=== PATIENT | male | born 1980 | race American Indian/Alaskan Native ===

== ENCOUNTER 2021-07-07 21:25 | Emergency (ER) | payer MEDICARE ==
--- NOTE | 2021-07-07 23:18 | Emergency Department Report ---
ED Psych HPI - General Chief Complaint: Psych Stated Complaint: MH Time Seen by Provider: 07/07/21 22:06 Source: patient Mode of arrival: Ambulatory - History of Present Illness Initial Comments: Patient is a 40-year-old F [place] male who is presenting with suicidal ideations. Patient states he is having severe depression and grief after the of her friend. Patient having thoughts of killing himself. Tonight he drank alcohol and took several sleeping pills. States he did not take enough to overdose however his plan to kill himself with his to overdose on pills. Patient states he only took 2 of the sleeping pills no auditory visual hallucinations no homicidal ideations. - Related Data Allergies Allergy/AdvReac Type Severity Reaction Status Date / Time lidocaine Allergy Unknown Verified 07/07/21 21:48 Penicillins Allergy Unknown Verified 07/07/21 21:48 ED Review of Systems ROS: Stated complaint: MH Other details as noted in HPI Comment: All other systems reviewed and negative ED Past Medical Hx - Past Medical History Previous Medical History?: Yes Hx Psychiatric Treatment: (schizophrenia) ED Physical Exam - General Limitations: No Limitations General appearance: alert, in no apparent distress - Head Head exam: Present: atraumatic, normocephalic - Eye Eye exam: Present: normal appearance - ENT ENT exam: Present: mucous membranes moist - Neck Neck exam: Present: normal inspection - Respiratory Respiratory exam: Present: normal lung sounds bilaterally. Absent: respiratory distress, wheezes, rales, rhonchi - Cardiovascular Cardiovascular Exam: Present: regular rate, normal rhythm, normal heart sounds. Absent: systolic murmur, diastolic murmur, rubs, gallop - GI/Abdominal GI/Abdominal exam: Present: soft, normal bowel sounds. Absent: distended, tenderness, guarding, rebound - Rectal Rectal exam: Present: deferred - Extremities Exam Extremities exam: Present: normal inspection - Back Exam Back exam: Present: normal inspection - Neurological Exam Neurological exam: Present: alert, oriented X3 - Psychiatric Psychiatric exam: Present: normal affect, normal mood - Skin Skin exam: Present: warm, dry, intact, normal color. Absent: rash ED Course Vital Signs 07/07/21 07/07/21 07/07/21 21:40 21:52 23:19 Temperature 99 F 97.9 F 97.9 F Pulse Rate 106 H 106 H Respiratory 16 16 Rate Blood Pressure 100/62 Blood Pressure 100/62 [Left] O2 Sat by Pulse 98 98 Oximetry 07/08/21 07/08/21 07/08/21 02:02 03:00 04:00 Temperature 97.5 F L 98.3 F 98.0 F Pulse Rate 83 74 79 Respiratory 18 18 18 Rate Blood Pressure Blood Pressure 113/81 126/73 138/79 [Left] O2 Sat by Pulse 98 98 98 Oximetry 07/08/21 07/08/21 07/08/21 05:00 06:00 09:07 Temperature 98.3 F 98.1 F 97.6 F Pulse Rate 79 63 66 Respiratory 18 18 18 Rate Blood Pressure Blood Pressure 122/63 126/68 113/72 [Left] O2 Sat by Pulse 96 98 98 Oximetry 07/08/21 10:00 Temperature 97.7 F Pulse Rate 72 Respiratory 18 Rate Blood Pressure Blood Pressure 115/70 [Left] O2 Sat by Pulse 98 Oximetry - Reevaluation(s) Reevaluation #1: 07/07/21 23:41 Patient is medically cleared at this time for mental health assessment Reevaluation #2: 08/19/21 03:40 Psychiatric Consult Note Patient Name: SINA GREGORIO Date of : 80 Patient Status: Emergency Emergency Provider: CARY MYERS Date: 07/08/21 08:43 Initialization Date: 07/08/21 08:43 History of Present Illness - Reason for Consult Consult date: 07/08/21 Reason for consult: SI - History of Present Psychiatric Illness Sina Gregorio is a 41y/o male patient I evaluated today. The patient is calm, cooperative and pleasant. He is smiling during visit. He is a/o x 3. He says he came in because "my momma kicked me out of the house." He says "I had to get a hair cut and she told me to buy an air mattress but I didn't have enough money after I got a hair cut." He says "we are still close but I guess she just feels like I am grown." The patient denies SI/HI. He says "I was but I done calmed down now." He says he has a history of schizophrenia and takes abilify and zoloft. The patient says he is compliant with his medications. He denies any illicit drugs use, alcohol or nicotine. He denies hallucinations of any kind. Psych History Diagnoses: Schizoaffective Suicide attempts or Self-harm behavior:Yes Prior psychiatric hospitalizations: Yes Substance Abuse history:Denies Previous psychiatric medications tried:Steve Haji Outpatient treatment: Unknown PAST MEDICAL HISTORY: none reported Family Psychiatric History: None reported or documented SOCIAL HISTORY Marital Status: Single Living Arrangements: Lives with mom Employment Status: unemployed Access to guns/weapons: Denies Education: History of Abuse: Denies Legal History: None reported REVIEW OF SYSTEMS Constitutional: Negative for weight loss ENT: Negative for stridor Respiratory: Negative for cough or hemoptysis All other systems reviewed and are negative MENTAL STATUS EXAMINATION General Appearance and Behavior: Age appropriate, good hygiene, wearing appropriate clothes, calm, cooperative, polite and pleasant Cooperation: cooperative Psychomotor Behavior: unremarkable and within normal limits Mood: calmed down, okay Affect and affective range: congruent with mood, Euthymic Thought Process: Goal directed Thought Content: None Speech: Normal volume, Regular rate and rhythm, Suicidal Ideation: Denies Homicidal Ideation:Denies Hallucinations: Denies Delusions: None elicited Impulse Control: Limited Insight and Judgment: Limited Memory: Normal, Attention: Normal Orientation: Alert, oriented Assessment and Plan (1)Hx of schizophrenia Treatment plan Continue home medications. The patient states he has at home Risks, benefits and alternatives of medications discussed with the patient, questions answered and consent obtained from patient. PSYCHOTHERAPY: Supportive psychotherapy provided MEDICAL: Per primary team DELIRIUM PRECAUTIONS: Please re-orient patient frequently, keep lights on during the day, and minimize benzodiazepines and opiates as these medications could worsen patient's confusion. 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 The patient understands that if suicidal thoughts are to reoccur he is to seek immediate assistance. Will sign off Thank you for the consult. Please contact with any questions and/or concerns. Case staffed with Dr. Amando DAVID Medical Decision Making - Lab Data Result diagrams: 07/07/21 22:50 07/07/21 22:50 Lab Results 07/07/21 07/07/21 07/07/21 Range/Units 22:50 22:50 22:50 WBC 6.1 (4.5-11.0) K/mm3 RBC 4.86 (3.65-5.03) M/mm3 Hgb 13.2 (11.8-15.2) gm/dl Hct 39.2 (35.5-45.6) % MCV 81 L (84-94) fl MCH 27 L (28-32) pg MCHC 34 (32-34) % RDW 15.2 (13.2-15.2) % Plt Count 243 (140-440) K/mm3 Lymph % (Auto) 23.5 (13.4-35.0) % [place] % (Auto) 9.4 H (0.0-7.3) % Eos % (Auto) 1.9 (0.0-4.3) % Baso % (Auto) 0.4 (0.0-1.8) % Lymph # (Auto) 1.4 (1.2-5.4) K/mm3 Dup[place] # (Auto) 0.6 (0.0-0.8) K/mm3 Eos # (Auto) 0.1 (0.0-0.4) K/mm3 Baso # (Auto) 0.0 (0.0-0.1) K/mm3 Seg Neutrophils % 64.8 (40.0-70.0) % Seg Neutrophils # 4.0 (1.8-7.7) K/mm3 Sodium 137 (137-145) mmol/L Potassium 4.3 (3.6-5.0) mmol/L Chloride 100.3 (98-107) mmol/L Carbon Dioxide 25 (22-30) mmol/L Anion Gap 16 mmol/L BUN 18 (9-20) mg/dL Creatinine 1.2 (0.8-1.3) mg/dL Estimated GFR > 60 ml/min BUN/Creatinine Ratio 15 % Glucose 94 (75-100) mg/dL Calcium 9.5 (8.4-10.2) mg/dL Salicylates < 0.3 L (2.8-20.0) mg/dL Acetaminophen (10.0-30.0) ug/mL Plasma/Serum Alcohol (0-0.07) % 07/07/21 07/07/21 Range/Units 22:50 22:50 WBC (4.5-11.0) K/mm3 RBC (3.65-5.03) M/mm3 Hgb (11.8-15.2) gm/dl Hct (35.5-45.6) % MCV (84-94) fl MCH (28-32) pg MCHC (32-34) % RDW (13.2-15.2) % Plt Count (140-440) K/mm3 Lymph % (Auto) (13.4-35.0) % Dup[place] % (Auto) (0.0-7.3) % Eos % (Auto) (0.0-4.3) % Baso % (Auto) (0.0-1.8) % Lymph # (Auto) (1.2-5.4) K/mm3 Dup[place] # (Auto) (0.0-0.8) K/mm3 Eos # (Auto) (0.0-0.4) K/mm3 Baso # (Auto) (0.0-0.1) K/mm3 Seg Neutrophils % (40.0-70.0) % Seg Neutrophils # (1.8-7.7) K/mm3 Sodium (137-145) mmol/L Potassium (3.6-5.0) mmol/L Chloride (98-107) mmol/L Carbon Dioxide (22-30) mmol/L Anion Gap mmol/L BUN (9-20) mg/dL Creatinine (0.8-1.3) mg/dL Estimated GFR ml/min BUN/Creatinine Ratio % Glucose (75-100) mg/dL Calcium (8.4-10.2) mg/dL Salicylates (2.8-20.0) mg/dL Acetaminophen 5.0 L (10.0-30.0) ug/mL Plasma/Serum Alcohol < 0.01 (0-0.07) % Critical care attestation.: If time is entered above; I have spent that time in minutes in the direct care of this critically ill patient, excluding procedure time. ED Disposition Clinical Impression: History of schizophrenia, Behavior concern in adult Disposition: 01 HOME / SELF CARE / HOMELESS Is pt being admited?: No Does the pt Need Aspirin: No Condition: Stable Instructions: Schizophrenia Additional Instructions: OUTPATIENT MENTAL HEALTH RESOURCES [facility], [facility] Nette Lindsey MD: [address] [place] [address] [place] [address] [facility]: [facility] [address] [place] [address] [place] [address] [phone] [facility]: [facility]: [address] [facility] [address] [facility] [address] [facility] [place] [address] [facility] [address] [facility]: Nathanael Martinez MD: [address] [facility] [address] [facility] [address] [facility]: [address] [place], [place] [id number] [phone] [place] CRISIS AND ACCESS LINE: HOMELESS RESOURCES: [facility] NEED HELP? If you are in need of help or know someone who does, please contact us at [email or web address] call , or come to our offices at [address] [place] [address], Saturday-Saturday beginning 9:30 AM-1:30 PM -Support services help people with getting identification and legal documents -Homeless verification letter -Facesheet (if needed) [facility] Males only Admission at 7am Mon to Fri Address: [address] [place] [address] Client Engagement [phone] Regular program admission occurs Saturday through Saturday at 7:00 amand operates on a first come, first serve basis.Because we cant anticipate program availability in advance andprogram spots are in high demand, we recommend arriving early. Space fills up fast! Next steps can include: Assignment to a [facility] program bed Connection to and placement in a partner program, or Referral to a partner agency [facility] [place] Admission at 4:30pm daily Address: [address] [place] [address] [facility] Admission from 8am to 10am Daily No intake until 09/26/20 Address: [facility] [place] [address] Referrals: PRIMARY CARE, [Primary Care Provider] - 3-5 Days
[2021-07-07 23:28] LABS: Basophils % (Auto) 0.4 % (0.0-1.8); Eosinophils # (Auto) 0.1 K/mm3 (0.0-0.4); Eosinophils % (Auto) 1.9 % (0.0-4.3); Hematocrit 39.2 % (35.5-45.6); Hemoglobin 13.2 gm/dl (11.8-15.2); Lymphocytes # (Auto) 1.4 K/mm3 (1.2-5.4); Lymphocytes % (Auto) 23.5 % (13.4-35.0); Mean Corpuscular HGB Conc 34 % (32-34); Mean Corpuscular Volume 81 fl (84-94); Monocytes # (Auto) 0.6 K/mm3 (0.0-0.8); Monocytes % (Auto) 9.4 % (0.0-7.3); Platelet Count 243 K/mm3 (140-440); Red Blood Count 4.86 M/mm3 (3.65-5.03); Red Cell Distribution Width 15.2 % (13.2-15.2)
[2021-07-07 23:31] LABS: BUN/Creatinine Ratio 15; Blood Urea Nitrogen 18 mg/dL (9-20); Calcium 9.5 mg/dL (8.4-10.2); Hemolysis Index 5
[2021-07-07 23:50] LABS: Bacteria,Urine 2+ /HPF (Negative); Bilirubin,Urine NEG (Negative); Blood,Urine NEG (Negative); Color,Urine Yellow (Yellow); Mucus,Urine 1+ /HPF; Protein,Urine <15 mg/dL mg/dL (Negative)
[2021-07-07 23:56] LABS: Amphetamine Screen,Urine PRESUMPTIVE NEGATIVE; Benzodiazepines Screen,Urine PRESUMPTIVE NEGATIVE; Cannabinoid Screen,Urine PRESUMPTIVE NEGATIVE; Cocaine Screen,Urine PRESUMPTIVE NEGATIVE; Methadone Screen,Urine PRESUMPTIVE NEGATIVE; Opiate Screen,Urine PRESUMPTIVE NEGATIVE
--- NOTE | 2021-07-08 08:46 | Consultation ---
History of Present Illness - Reason for Consult Consult date: 07/08/21 Reason for consult: SI - History of Present Psychiatric Illness Sina Nesbitt is a 41y/o male patient I evaluated today. The patient is calm, cooperative and pleasant. He is smiling during visit. He is a/o x 3. He says he came in because "my momma kicked me out of the house." He says "I had to get a hair cut and she told me to buy an air mattress but I didn't have enough money after I got a hair cut." He says "we are still close but I guess she just feels like I am grown." The patient denies SI/HI. He says "I was but I done calmed down now." He says he has a history of schizophrenia and takes abilify and zoloft. The patient says he is compliant with his medications. He denies any illicit drugs use, alcohol or nicotine. He denies hallucinations of any kind. Psych History Diagnoses: Schizoaffective Suicide attempts or Self-harm behavior:Yes Prior psychiatric hospitalizations: Yes Substance Abuse history:Denies Previous psychiatric medications tried:Steve Haji Outpatient treatment: Unknown PAST MEDICAL HISTORY: none reported Family Psychiatric History: None reported or documented SOCIAL HISTORY Marital Status: Single Living Arrangements: Lives with mom Employment Status: unemployed Access to guns/weapons: Denies Education: History of Abuse: Denies Legal History: None reported REVIEW OF SYSTEMS Constitutional: Negative for weight loss ENT: Negative for stridor Respiratory: Negative for cough or hemoptysis All other systems reviewed and are negative MENTAL STATUS EXAMINATION General Appearance and Behavior: Age appropriate, good hygiene, wearing appropriate clothes, calm, cooperative, polite and pleasant Cooperation: cooperative Psychomotor Behavior: unremarkable and within normal limits Mood: calmed down, okay Affect and affective range: congruent with mood, Euthymic Thought Process: Goal directed Thought Content: None Speech: Normal volume, Regular rate and rhythm, Suicidal Ideation: Denies Homicidal Ideation:Denies Hallucinations: Denies Delusions: None elicited Impulse Control: Limited Insight and Judgment: Limited Memory: Normal, Attention: Normal Orientation: Alert, oriented Assessment and Plan (1)Hx of schizophrenia Treatment plan Continue home medications. The patient states he has at home Risks, benefits and alternatives of medications discussed with the patient, questions answered and consent obtained from patient. PSYCHOTHERAPY: Supportive psychotherapy provided MEDICAL: Per primary team DELIRIUM PRECAUTIONS: Please re-orient patient frequently, keep lights on during the day, and minimize benzodiazepines and opiates as these medications could worsen patient's confusion. 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 The patient understands that if suicidal thoughts are to reoccur he is to seek immediate assistance. Will sign off Thank you for the consult. Please contact with any questions and/or concerns. Case staffed with Dr. Geol Medications and Allergies Allergies Allergy/AdvReac Type Severity Reaction Status Date / Time lidocaine Allergy Unknown Verified 07/07/21 21:48 Penicillins Allergy Unknown Verified 07/07/21 21:48 Mental Status Exam - Vital signs Last Vital Signs Temp 98.1 F 07/08/21 06:00 Pulse 63 07/08/21 06:00 Resp 18 07/08/21 06:00 BP 126/68 07/08/21 06:00 Pulse Ox 98 07/08/21 06:00 Results Result Diagrams: 07/07/21 22:50 07/07/21 22:50 Abnormal lab results 07/07/21 07/07/21 07/07/21 Range/Units 22:50 22:50 22:50 MCV 81 L (84-94) fl MCH 27 L (28-32) pg [place] % (Auto) 9.4 H (0.0-7.3) % Salicylates < 0.3 L (2.8-20.0) mg/dL Acetaminophen 5.0 L (10.0-30.0) ug/mL All other labs normal.
[2021-07-08 10:29] VITALS: BP 115/70
== END 2021-07-08 11:17 | disposition home or self-care (01) ==
LOC: ED 21:25
DX: R45.851 Suicidal ideations (principal); F32.9 Major depressive disorder, single episode, unspecified; Z20.822 Contact with and (suspected) exposure to COVID-19; F20.9 Schizophrenia, unspecified; Z88.0 Allergy status to penicillin; Z88.4 Allergy status to anesthetic agent
CPT/HCPCS: 36415; 80048; 80307; 81001; 85025; 99284; U0003; 80320; G0480